=== PATIENT | female | born 1950 | race Caucasian/White ===

== ENCOUNTER 2023-07-07 17:19 | Inpatient (IN) | payer MEDICARE ==
[2023-07-07 18:05] LABS: Basophils % (A) 1 %; Eosinophils # (A) 0.1 k/uL (0-0.7); Eosinophils % (A) 2 %; HCT 44.4 % (34.0-46.0); HGB 14.1 gm/dL (11.4-16.0); Lymphocytes # (A) 0.9 k/uL (1.0-4.8); Lymphocytes % (A) 12 %; MCH 28.1 pg (25.0-35.0); MCHC 31.7 g/dL (31.0-37.0); MCV 88.8 fL (80.0-100.0); Mean Platelet Volume 9.2; Monocytes # (A) 0.3 k/uL (0-1.0); Monocytes % (A) 5 %; Neutrophils # (A) 5.8 k/uL (1.3-7.7); Neutrophils % (A) 80 %; Platelet Count 132 k/uL (150-450); RDW 13.5 % (11.5-15.5); WBC 7.3 k/uL (3.8-10.6)
[2023-07-07] MEDS: IPRATROPIUM-ALBUTEROL 3 ML NEB INHALATION STA (18:06)
[2023-07-07] MEDS: SODIUM CHLORIDE 0.9% 1,000 ML IV STA (18:11)
[2023-07-07 18:15] LABS: ALT 26 U/L (4-34); AST 27 U/L (14-36); African American GFR (CKD) >90 (>60 ml/min/1.73 sqM); Albumin 3.9 g/dL (3.5-5.0); Alkaline Phosphatase 99 U/L (38-126); Anion Gap 8 mmol/L; Blood Urea Nitrogen 16 mg/dL (7-17); Calcium 8.6 mg/dL (8.4-10.2); Carbon Dioxide 27 mmol/L (22-30); Chloride 105 mmol/L (98-107); Glucose 122 mg/dL (74-99); Magnesium 1.8 mg/dL (1.6-2.3); Non-African American GFR(CKD) 79 (>60 ml/min/1.73 sqM); Potassium 4.5 mmol/L (3.5-5.1); Sodium 140 mmol/L (137-145); Total Bilirubin 0.7 mg/dL (0.2-1.3)
--- NOTE | 2023-07-07 18:15 | ED ---
SOB HPI - General Chief Complaint: Shortness of Breath Stated Complaint: SOB, Chest Pain Time Seen by Provider: 07/07/23 17:30 Source: patient, RN notes reviewed, old records reviewed Mode of arrival: wheelchair Limitations: no limitations - History of Present Illness Initial Comments: This is a 73-year-old female to the ER for evaluation today. Patient presents today for evaluation regards to severe shortness of breath and exertional dyspnea. Patient has a long complex recent history of significant shortness of breath has no history of recent smoking quit smoking over 40 years ago. MD Complaint: shortness of breath, cough, anxiety -: days(s) Severity: severe Severity scale (1-10): 10 Consistency: constant Improves With: nothing Worsens With: exertion Known History Of: congestive heart failure Context: recent URI, recent illness Associated Symptoms: palpitations Treatments Prior to Arrival: none - Related Data Home Medications Medication Instructions Recorded Confirmed Sertraline HCl [Zoloft] 100 mg PO DAILY 11/17/13 07/07/23 Famotidine 40 mg PO DAILY PRN 07/07/23 07/07/23 Previous Rx's Medication Instructions Recorded Aspirin 81 mg PO DAILY tab 07/09/23 Atorvastatin [Lipitor] 80 mg PO HS #90 tab 07/09/23 Metoprolol Tartrate [Lopressor] 25 mg PO BID #180 tab 07/09/23 Nitroglycerin Sl Tabs [Nitrostat] 0.4 mg SUBLINGUAL Q5M PRN #25 tab 07/09/23 Spironolactone [Aldactone] 25 mg PO DAILY #90 tab 07/09/23 Ticagrelor [Brilinta] 90 mg PO BID #180 tab 07/09/23 lisinopriL [Zestril] 5 mg PO BID #180 tab 07/09/23 Allergies Allergy/AdvReac Type Severity Reaction Status Date / Time adhesive Allergy Rash/Hives Verified 07/07/23 19:11 Review of Systems ROS Statement: Those systems with pertinent positive or pertinent negative responses have been documented in the HPI. ROS Other: All systems not noted in ROS Statement are negative. Past Medical History Past Medical History: Pneumonia Additional Past Medical History / Comment(s): Seasonal allergy disorder. Occasional cardiac ectopy. Depression History of Any Multi-Drug Resistant Organisms: None Reported Past Surgical History: Bariatric Surgery, Section Additional Past Surgical History / Comment(s): lap band Past Anesthesia/Blood Transfusion Reactions: No Reported Reaction Past Psychological History: Anxiety, Depression Smoking Status: Former smoker Past Alcohol Use History: None Reported Past Drug Use History: None Reported - Past Family History Father Family Medical History: Cancer Additional Family Medical History / Comment(s): at age 79-cancer, heart problems Mother Additional Family Medical History / Comment(s): AT AGE 48-THROAT CANCER General Exam Limitations: no limitations General appearance: alert, in no apparent distress Head exam: Present: atraumatic, normocephalic, normal inspection Eye exam: Present: normal appearance, PERRL, EOMI. Absent: scleral icterus, conjunctival injection, periorbital swelling ENT exam: Present: normal exam, mucous membranes moist Neck exam: Present: normal inspection. Absent: tenderness, meningismus, lymphadenopathy Respiratory exam: Present: normal lung sounds bilaterally. Absent: respiratory distress, wheezes, rales, rhonchi, stridor Cardiovascular Exam: Present: regular rate, normal rhythm, normal heart sounds. Absent: systolic murmur, diastolic murmur, rubs, gallop, clicks GI/Abdominal exam: Present: soft, normal bowel sounds. Absent: distended, tenderness, guarding, rebound, rigid Extremities exam: Present: normal inspection, full ROM, normal capillary refill. Absent: tenderness, pedal edema, joint swelling, calf tenderness Back exam: Present: normal inspection Neurological exam: Present: alert, oriented X3, CN II-XII intact Psychiatric exam: Present: normal affect, normal mood Skin exam: Present: warm, dry, intact, normal color. Absent: rash Course Vital Signs 07/07/23 07/07/23 07/07/23 17:20 18:07 18:12 Temperature 98.3 F Pulse Rate 87 97 70 Respiratory 30 H 36 H Rate Blood Pressure 195/95 189/98 O2 Sat by Pulse 98 99 Oximetry 07/07/23 07/07/23 18:15 19:42 Temperature Pulse Rate 72 69 Respiratory 22 Rate Blood Pressure 180/82 O2 Sat by Pulse 99 Oximetry - Reevaluation(s) Reevaluation #1: 07/07/23 19:29 Medical record is reviewed Reevaluation #2: 07/07/23 19:29 Patient symptoms unchanged Reevaluation #3: 05/15/24 19:29 Patient informed of results and questions answered Reevaluation #4: Was pt. sent in by a medical professional or institution (, [facility], CUSTODIAL ENGINEER, urgent care, hospital, or custodial...) When possible be specific @ -no Did you speak to anyone other than the patient for history (EMS, parent, family, police, friend...)? What history was obtained from this source @ -no Did you review nursing and triage notes (agree or disagree)? Why? @ -agree Are old charts reviewed (outside hosp., previous admission, EMS record, old EKG, old radiological studies, urgent care reports/EKG's, custodial records)? Report findings @ -yes Differential Diagnosis (chest pain, altered mental status, abdominal pain women, abdominal pain men, vaginal bleeding, weakness, fever, dyspnea, syncope, headache, dizziness, GI bleed, back pain, seizure, CVA, palpatations, mental health, musculoskeletal)? @ -prior EKG interpreted by me (3pts min.). @ -yes X-rays interpreted by me (1pt min.). @ -yes positive for CHF CT interpreted by me (1pt min.). @ -no U/S interpreted by me (1pt. min.). @ -no What testing was considered but not performed or refused? (CT, X-rays, U/S, labs)? Why? @ -none What meds were considered but not given or refused? Why? @ -none Did you discuss the management of the patient with other professionals (professionals i.e. [facility]on[facility], CUSTODIAL ENGINEER, lab, RT, psych nurse, social sciences instructor, electro optics engineer, teacher, welfare officer, correctional counselor/case manager)? Give summary @ -no Was smoking cessation discussed for >3mins.? @ -no Was critical care preformed (if so, how long)? @ -yes31 Were there social determinants of health that impacted care today? How? (Homelessness, low income, unemployed, alcoholism, drug addiction, transportatio n, low edu. Level, literacy, decrease access to med. care, penitentiary, rehab)? @ -none Was there de-escalation of care discussed even if they declined (Discuss DNR or withdrawal of care, Hospice)? DNR status @ -no What co-morbidities impacted this encounter? (DM, HTN, Smoking, COPD, CAD, Cancer, CVA, ARF, Chemo, Hep., AIDS, mental health diagnosis, sleep apnea, morbid obesity)? @ -none Was patient admitted / discharged? Hospital course, mention meds given and route, prescriptions, significant lab abnormalities, going to OR and other pertinent info. @ - 73 female to the ER for evaluation of severe dyspnea and shortness of breath. Patient will be admitted for diuresis and cardiology evaluation Admitted Undiagnosed new problem with uncertain prognosis? @ -no Drug Therapy requiring intensive monitoring for toxicity (Heparin, Nitro, Insulin, Cardizem)? @ -no Were any procedures done? @ -no Diagnosis/symptom? @ -Severe dyspnea shortness of breath respiratory failure CHF Acute, or Chronic, or Acute on Chronic? @ -Acute Uncomplicated (without systemic symptoms) or Complicated (systemic symptoms)? @ -Complicated Side effects of treatment? @ -no Exacerbation, Progression, or Severe Exacerbation? @ -exacerbation Poses a threat to life or bodily function? How? (Chest pain, [place], [place], pneumonia, PE, COPD, DKA, ARF, appy, cholecystitis, CVA, Diverticulitis, Homicidal, Suicidal, threat to staff... and all critical care pts) @ -yes with extremes of age Reevaluation #5: Differential Dyspnea: Coronary syndrome, arrhythmia, tamponade, asthma, COPD, pulmonary embolism, pneumonia, pneumothorax, pulmonary effusion, anaphylaxis, diabetic ketoacidosis, flailed chest, pulmonary contusion, diaphragmatic rupture, anemia, neuromuscular, this is not meant to be an all-inclusive list. - Consultations Consultation #1: Spoke with Dr. Gunn who will admit this patient Medical Decision Making - Medical Decision Making 73 female to the ER for evaluation of severe dyspnea and shortness of breath. Patient will be admitted for diuresis and cardiology evaluation - Lab Data Result diagrams: 07/09/23 05:49 07/09/23 05:49 Lab Results 07/07/23 07/07/23 07/07/23 Range/Units 17:49 17:49 17:49 WBC 7.3 (3.8-10.6) k/uL RBC 5.00 (3.80-5.40) m/uL Hgb 14.1 (11.4-16.0) gm/dL Hct 44.4 (34.0-46.0) % MCV 88.8 (80.0-100.0) fL MCH 28.1 (25.0-35.0) pg MCHC 31.7 (31.0-37.0) g/dL RDW 13.5 (11.5-15.5) % Plt Count 132 L (150-450) k/uL MPV 9.2 Immature Gran % (Auto) % Absolute Nucleated RBC % Neutrophils % 80 % Lymphocytes % 12 % Monocytes % 5 % Eosinophils % 2 % Basophils % 1 % Immature Gran # (0.00-0.04) X 10*3/uL Neutrophils # 5.8 (1.3-7.7) k/uL Lymphocytes # 0.9 L (1.0-4.8) k/uL Monocytes # 0.3 (0-1.0) k/uL Eosinophils # 0.1 (0-0.7) k/uL Basophils # 0.0 (0-0.2) k/uL NRBC/100 WBC Diff (0.00-0.01) X 10*3/uL PT 11.0 (10.0-12.5) sec INR 1.0 (<1.2) APTT 24.5 (22.0-30.0) sec D-Dimer 1.08 H (<0.60) mg/L FEU Sodium 140 (137-145) mmol/L Potassium 4.5 (3.5-5.1) mmol/L Chloride 105 (98-107) mmol/L Carbon Dioxide 27 (22-30) mmol/L Anion Gap 8 mmol/L BUN 16 (7-17) mg/dL Creatinine 0.75 (0.52-1.04) mg/dL Est GFR (CKD-EPI)AfAm >90 (>60 ml/min/1.73 sqM) Est GFR (CKD-EPI)NonAf 79 (>60 ml/min/1.73 sqM) Glucose 122 H (74-99) mg/dL Calcium 8.6 (8.4-10.2) mg/dL Magnesium 1.8 (1.6-2.3) mg/dL Total Bilirubin 0.7 (0.2-1.3) mg/dL AST 27 (14-36) U/L ALT 26 (4-34) U/L Alkaline Phosphatase 99 (38-126) U/L Troponin I (0.000-0.034) ng/mL NT-Pro-B Natriuret Pep 1970 pg/mL Total Protein 7.0 (6.3-8.2) g/dL Albumin 3.9 (3.5-5.0) g/dL Globulin g/dL Albumin/Globulin Ratio Urine Color Urine Appearance (Clear) Urine pH (5.0-8.0) Ur Specific Beaver (1.001-1.035) Urine Protein (Negative) Urine Glucose (UA) (Negative) Urine Ketones (Negative) Urine Blood (Negative) Urine Nitrite (Negative) Urine Bilirubin (Negative) Urine Urobilinogen (<2.0) mg/dL Ur Leukocyte Esterase (Negative) 07/07/23 07/07/23 07/07/23 Range/Units 17:49 18:03 21:12 WBC (3.8-10.6) k/uL RBC (3.80-5.40) m/uL Hgb (11.4-16.0) gm/dL Hct (34.0-46.0) % MCV (80.0-100.0) fL MCH (25.0-35.0) pg MCHC (31.0-37.0) g/dL RDW (11.5-15.5) % Plt Count (150-450) k/uL MPV Immature Gran % (Auto) % Absolute Nucleated RBC % Neutrophils % % Lymphocytes % % Monocytes % % Eosinophils % % Basophils % % Immature Gran # (0.00-0.04) X 10*3/uL Neutrophils # (1.3-7.7) k/uL Lymphocytes # (1.0-4.8) k/uL Monocytes # (0-1.0) k/uL Eosinophils # (0-0.7) k/uL Basophils # (0-0.2) k/uL NRBC/100 WBC Diff (0.00-0.01) X 10*3/uL PT (10.0-12.5) sec INR (<1.2) APTT (22.0-30.0) sec D-Dimer (<0.60) mg/L FEU Sodium (137-145) mmol/L Potassium (3.5-5.1) mmol/L Chloride (98-107) mmol/L Carbon Dioxide (22-30) mmol/L Anion Gap mmol/L BUN (7-17) mg/dL Creatinine (0.52-1.04) mg/dL Est GFR (CKD-EPI)AfAm (>60 ml/min/1.73 sqM) Est GFR (CKD-EPI)NonAf (>60 ml/min/1.73 sqM) Glucose (74-99) mg/dL Calcium (8.4-10.2) mg/dL Magnesium (1.6-2.3) mg/dL Total Bilirubin (0.2-1.3) mg/dL AST (14-36) U/L ALT (4-34) U/L Alkaline Phosphatase (38-126) U/L Troponin I 0.022 0.173 H* (0.000-0.034) ng/mL NT-Pro-B Natriuret Pep pg/mL Total Protein (6.3-8.2) g/dL Albumin (3.5-5.0) g/dL Globulin g/dL Albumin/Globulin Ratio Urine Color Colorless Urine Appearance Clear (Clear) Urine pH 7.0 (5.0-8.0) Ur Specific Beaver 1.005 (1.001-1.035) Urine Protein Trace H (Negative) Urine Glucose (UA) Negative (Negative) Urine Ketones Negative (Negative) Urine Blood Negative (Negative) Urine Nitrite Negative (Negative) Urine Bilirubin Negative (Negative) Urine Urobilinogen <2.0 (<2.0) mg/dL Ur Leukocyte Esterase Negative (Negative) 07/08/23 07/08/23 07/08/23 Range/Units 00:22 00:22 00:22 WBC 8.8 (3.8-10.6) k/uL RBC 4.63 (3.80-5.40) m/uL Hgb 13.5 (11.4-16.0) gm/dL Hct 40.9 (34.0-46.0) % MCV 88.3 (80.0-100.0) fL MCH 29.0 (25.0-35.0) pg MCHC 32.9 (31.0-37.0) g/dL RDW 13.6 (11.5-15.5) % Plt Count 140 L (150-450) k/uL MPV 9.8 Immature Gran % (Auto) % Absolute Nucleated RBC % Neutrophils % 83 % Lymphocytes % 10 % Monocytes % 4 % Eosinophils % 1 % Basophils % 0 % Immature Gran # (0.00-0.04) X 10*3/uL Neutrophils # 7.3 (1.3-7.7) k/uL Lymphocytes # 0.9 L (1.0-4.8) k/uL Monocytes # 0.4 (0-1.0) k/uL Eosinophils # 0.1 (0-0.7) k/uL Basophils # 0.0 (0-0.2) k/uL NRBC/100 WBC Diff (0.00-0.01) X 10*3/uL PT 12.1 (10.0-12.5) sec INR 1.1 (<1.2) APTT 123.5 H* (22.0-30.0) sec D-Dimer (<0.60) mg/L FEU Sodium (137-145) mmol/L Potassium (3.5-5.1) mmol/L Chloride (98-107) mmol/L Carbon Dioxide (22-30) mmol/L Anion Gap mmol/L BUN (7-17) mg/dL Creatinine (0.52-1.04) mg/dL Est GFR (CKD-EPI)AfAm (>60 ml/min/1.73 sqM) Est GFR (CKD-EPI)NonAf (>60 ml/min/1.73 sqM) Glucose (74-99) mg/dL Calcium (8.4-10.2) mg/dL Magnesium (1.6-2.3) mg/dL Total Bilirubin (0.2-1.3) mg/dL AST (14-36) U/L ALT (4-34) U/L Alkaline Phosphatase (38-126) U/L Troponin I 0.197 H* (0.000-0.034) ng/mL NT-Pro-B Natriuret Pep pg/mL Total Protein (6.3-8.2) g/dL Albumin (3.5-5.0) g/dL Globulin g/dL Albumin/Globulin Ratio Urine Color Urine Appearance (Clear) Urine pH (5.0-8.0) Ur Specific Beaver (1.001-1.035) Urine Protein (Negative) Urine Glucose (UA) (Negative) Urine Ketones (Negative) Urine Blood (Negative) Urine Nitrite (Negative) Urine Bilirubin (Negative) Urine Urobilinogen (<2.0) mg/dL Ur Leukocyte Esterase (Negative) 07/08/23 07/08/23 07/08/23 Range/Units 06:25 06:25 06:25 WBC 6.51 (3.8-10.6) k/uL RBC 4.70 (3.80-5.40) m/uL Hgb 13.3 (11.4-16.0) gm/dL Hct 42.5 (34.0-46.0) % MCV 90.4 (80.0-100.0) fL MCH 28.3 (25.0-35.0) pg MCHC 31.3 L (31.0-37.0) g/dL RDW 13.3 (11.5-15.5) % Plt Count 138 L (150-450) k/uL MPV 11.9 Immature Gran % (Auto) 0.30 % Absolute Nucleated RBC 0 % Neutrophils % 73.9 % Lymphocytes % 17.1 % Monocytes % 6.9 % Eosinophils % 1.2 % Basophils % 0.6 % Immature Gran # 0.02 (0.00-0.04) X 10*3/uL Neutrophils # 4.81 (1.3-7.7) k/uL Lymphocytes # 1.11 (1.0-4.8) k/uL Monocytes # 0.45 (0-1.0) k/uL Eosinophils # 0.08 (0-0.7) k/uL Basophils # 0.04 (0-0.2) k/uL NRBC/100 WBC Diff 0 (0.00-0.01) X 10*3/uL PT 12.1 (10.0-12.5) sec INR 1.1 (<1.2) APTT 28.0 (22.0-30.0) sec D-Dimer (<0.60) mg/L FEU Sodium (137-145) mmol/L Potassium (3.5-5.1) mmol/L Chloride (98-107) mmol/L Carbon Dioxide (22-30) mmol/L Anion Gap mmol/L BUN (7-17) mg/dL Creatinine (0.52-1.04) mg/dL Est GFR (CKD-EPI)AfAm (>60 ml/min/1.73 sqM) Est GFR (CKD-EPI)NonAf (>60 ml/min/1.73 sqM) Glucose (74-99) mg/dL Calcium (8.4-10.2) mg/dL Magnesium (1.6-2.3) mg/dL Total Bilirubin (0.2-1.3) mg/dL AST (14-36) U/L ALT (4-34) U/L Alkaline Phosphatase (38-126) U/L Troponin I (0.000-0.034) ng/mL NT-Pro-B Natriuret Pep pg/mL Total Protein (6.3-8.2) g/dL Albumin (3.5-5.0) g/dL Globulin g/dL Albumin/Globulin Ratio Urine Color Urine Appearance (Clear) Urine pH (5.0-8.0) Ur Specific Be[place] (1.001-1.035) Urine Protein (Negative) Urine Glucose (UA) (Negative) Urine Ketones (Negative) Urine Blood (Negative) Urine Nitrite (Negative) Urine Bilirubin (Negative) Urine Urobilinogen (<2.0) mg/dL Ur Leukocyte Esterase (Negative) 07/09/23 07/09/23 Range/Units 05:49 05:49 WBC 7.13 (3.8-10.6) k/uL RBC 4.43 (3.80-5.40) m/uL Hgb 12.5 (11.4-16.0) gm/dL Hct 38.8 (34.0-46.0) % MCV 87.6 (80.0-100.0) fL MCH 28.2 (25.0-35.0) pg MCHC 32.2 (31.0-37.0) g/dL RDW 13.3 (11.5-15.5) % Plt Count 138 L (150-450) k/uL MPV 11.9 Immature Gran % (Auto) 0.30 % Absolute Nucleated RBC 0 % Neutrophils % 73.8 % Lymphocytes % 14.3 % Monocytes % 9.8 % Eosinophils % 1.4 % Basophils % 0.4 % Immature Gran # 0.02 (0.00-0.04) X 10*3/uL Neutrophils # 5.26 (1.3-7.7) k/uL Lymphocytes # 1.02 (1.0-4.8) k/uL Monocytes # 0.70 (0-1.0) k/uL Eosinophils # 0.10 (0-0.7) k/uL Basophils # 0.03 (0-0.2) k/uL NRBC/100 WBC Diff 0 (0.00-0.01) X 10*3/uL PT (10.0-12.5) sec INR (<1.2) APTT (22.0-30.0) sec D-Dimer (<0.60) mg/L FEU Sodium 137 (137-145) mmol/L Potassium 3.8 (3.5-5.1) mmol/L Chloride 104 (98-107) mmol/L Carbon Dioxide 30 (22-30) mmol/L Anion Gap 3 mmol/L BUN 22 H (7-17) mg/dL Creatinine 0.78 (0.52-1.04) mg/dL Est GFR (CKD-EPI)AfAm 88 (>60 ml/min/1.73 sqM) Est GFR (CKD-EPI)NonAf 76 (>60 ml/min/1.73 sqM) Glucose 121 H (74-99) mg/dL Calcium 8.3 L (8.4-10.2) mg/dL Magnesium (1.6-2.3) mg/dL Total Bilirubin 1.4 H (0.2-1.3) mg/dL AST 27 (14-36) U/L ALT 20 (4-34) U/L Alkaline Phosphatase 73 (38-126) U/L Troponin I (0.000-0.034) ng/mL NT-Pro-B Natriuret Pep pg/mL Total Protein 5.9 L (6.3-8.2) g/dL Albumin 3.1 L (3.5-5.0) g/dL Globulin 2.8 g/dL Albumin/Globulin Ratio 1.1 Urine Color Urine Appearance (Clear) Urine pH (5.0-8.0) Ur Specific Be[place] (1.001-1.035) Urine Protein (Negative) Urine Glucose (UA) (Negative) Urine Ketones (Negative) Urine Blood (Negative) Urine Nitrite (Negative) Urine Bilirubin (Negative) Urine Urobilinogen (<2.0) mg/dL Ur Leukocyte Esterase (Negative) - EKG Data -: EKG Interpreted by Me (EKG is sinus 82 OK 156 QRS 1 2 QTc 396) - Radiology Data Radiology results: report reviewed (Chest x-ray shows significant CHF), image reviewed Critical Care Time Critical Care Time: Yes Total Critical Care Time: 31 Disposition Clinical Impression: Congestive heart failure, Acute pulmonary edema, Hypoxia Disposition: ADMITTED IP TO THIS HOSP Condition: Serious Is patient prescribed a controlled substance at d/c from ED?: No Time of Disposition: 19:30
[2023-07-07 18:18] LABS: Partial Thromboplastin Time 24.5 sec (22.0-30.0)
[2023-07-07 18:18] LABS: Appearance,Urine Clear (Clear); Bilirubin,Urine Negative (Negative); Blood,Urine Negative (Negative); Color,Urine Colorless; Glucose,Urine (UA) Negative (Negative); Ketones,Urine Negative (Negative); Leukocyte Esterase,Urine Negative (Negative); Nitrite,Urine Negative (Negative); Protein,Urine Trace (Negative); Specific Gravity,Urine 1.005 (1.001-1.035); Urobilinogen,Urine <2.0 mg/dL (<2.0)
[2023-07-07 18:23] LABS: NT-Pro-B-Type Natriuretic Pept 1970 pg/mL
--- NOTE | 2023-07-07 18:56 | XR ---
EXAMINATION TYPE: XR chest 1V portable DATE OF EXAM: 07/07/2023 6:24 PM CLINICAL INDICATION:Female, 73 years old with history of sob; [facility] COMPARISON: None TECHNIQUE: XR chest 1V portable Frontal view of the chest. FINDINGS: Lungs/Pleura: There is no evidence of pleural effusion, focal consolidation, or pneumothorax. Pulmonary vascularity: Pulmonary vascular congestion. Heart/mediastinum: Cardiomediastinal silhouette is enlarged and stable. Musculoskeletal: No acute osseous pathology. IMPRESSION: Cardiomegaly and mild pulmonary vascular congestion. Correlate with BNP for congestive heart failure.
[2023-07-07] MEDS ORDERED: ONDANSETRON 4 MG/2 ML VIAL IVP PRN (19:19)
[2023-07-07] MEDS ORDERED: IPRATROPIUM-ALBUTEROL 3 ML NEB INHALATION PRN (19:19)
[2023-07-07] MEDS ORDERED: NALOXONE 0.4 MG/ML 1 ML VIAL IV PRN (19:19)
[2023-07-07] MEDS ORDERED: FAMOTIDINE 20 MG TAB PO PRN (20:04)
[2023-07-07] MEDS: FUROSEMIDE 10 MG/ML 4 ML VIAL IV SCH (20:05)
[2023-07-07] MEDS: NITROGLYCERIN OINT 1 INCH/GM PACKET TOPICAL SCH (23:13)
[2023-07-07] MEDS: HEPARIN SOD,PORK IN 0.45% NACL 25,000 UNIT in 0.45% NACL 1 250ML.BAG IV SCH (23:33)
[2023-07-07] MEDS: HEPARIN SODIUM 1,000 UN/ML (10ML VL) IV ONE (23:37)
[2023-07-08 01:06] LABS: Basophils % (A) 0 %; Eosinophils # (A) 0.1 k/uL (0-0.7); Eosinophils % (A) 1 %; HCT 40.9 % (34.0-46.0); HGB 13.5 gm/dL (11.4-16.0); Lymphocytes # (A) 0.9 k/uL (1.0-4.8); Lymphocytes % (A) 10 %; MCHC 32.9 g/dL (31.0-37.0); MCV 88.3 fL (80.0-100.0); Mean Platelet Volume 9.8; Monocytes # (A) 0.4 k/uL (0-1.0); Monocytes % (A) 4 %; Neutrophils # (A) 7.3 k/uL (1.3-7.7); Neutrophils % (A) 83 %; Platelet Count 140 k/uL (150-450); RBC 4.63 m/uL (3.80-5.40); RDW 13.6 % (11.5-15.5); WBC 8.8 k/uL (3.8-10.6)
[2023-07-08 01:13] LABS: INR 1.1 (<1.2); Prothrombin Time 12.1 sec (10.0-12.5)
[2023-07-08 01:31] LABS: Partial Thromboplastin Time 123.5 sec (22.0-30.0)
[2023-07-08] MEDS: HEPARIN SODIUM 1,000 UN/ML (10ML VL) IV PRN (07:45)
[2023-07-08] MEDS ORDERED: ALPRAZolam 0.25 MG TAB PO PRN (08:31)
[2023-07-08] MEDS ORDERED: NITROGLYCERIN SL TABS 0.4 MG TAB SUBLINGUAL PRN ×2 (08:31→13:07)
[2023-07-08] MEDS ORDERED: ALPRAZolam 0.5 MG TAB PO PRN (08:31)
[2023-07-08 08:44] LABS: HCT 42.5 % (37.2-46.3); HGB 13.3 g/dL (12.0-15.0); MCH 28.3 pg (27.0-32.0); MCHC 31.3 g/dL (32.0-37.0); MCV 90.4 FL (80.0-97.0); Mean Platelet Volume 11.9 FL (9.5-12.2); NRBC Per 100 WBC 0 X 10*3/uL (0.00-0.01); Platelet Count 138 X 10*3/uL (140-440); RDW 13.3 % (11.5-14.5); WBC 6.51 X 10*3/uL (4.50-10.00)
[2023-07-08 08:45] LABS: Basophils # (A) 0.04 X 10*3/uL (0.00-0.10); Basophils % (A) 0.6 %; Eosinophils # (A) 0.08 X 10*3/uL (0.04-0.35); Eosinophils % (A) 1.2 %; Lymphocytes # (A) 1.11 X 10*3/uL (0.90-5.00); Lymphocytes % (A) 17.1 %; Monocytes # (A) 0.45 X 10*3/uL (0.20-1.00); Monocytes % (A) 6.9 %; Neutrophils # (A) 4.81 X 10*3/uL (1.80-7.70); Neutrophils % (A) 73.9 %
[2023-07-08 08:46] LABS: INR 1.1 (<1.2); Prothrombin Time 12.1 sec (10.0-12.5)
[2023-07-08] MEDS: ATORVASTATIN 80 MG TAB PO STA (08:47)
[2023-07-08] MEDS: ASPIRIN 325 MG TAB PO STA (08:47)
[2023-07-08] MEDS: SERTRALINE 100 MG TAB PO SCH (08:49)
--- NOTE | 2023-07-08 10:18 | CA ---
Transthoracic Echo Report Name: Nina Miller Age: 73 Gender: F : 1950 Exam Date: 07/08/2023 08:43 Exam Location: [facility] Ht (in): 61 Wt (lb): 238 Ordering Physician: Dilshad Agarwal DO Attending/Referring Phys: [id number], Any Carriage Operator Nuria Aguillon RDCS Procedure CPT: Indications: Heart failure Cardiac Hx: Technical Quality: Fair Contrast 1: Definity Total Dose (mL): 2 Contrast 2: Total Dose (mL): MEASUREMENTS (Male / Female) Normal Values 2D ECHO LV Diastolic Diameter PLAX 5.4 cm 4.2 - 5.9 / 3.9 - 5.3 cm LV Systolic Diameter PLAX 4.3 cm IVS Diastolic Thickness 1.8 cm 0.6 - 1.0 / 0.6 - 0.9 cm LVPW Diastolic Thickness 1.2 cm 0.6 - 1.0 / 0.6 - 0.9 cm LV Relative Wall Thickness 0.6 RV Internal Dim ED PLAX 2.8 cm LV Diastolic Volume MOD BP 92.3 cm??? 67 - 155 / 56 - 104 cm??? LV Systolic Volume MOD BP 65.0 cm??? 22 - 58 / 19 - 49 cm??? LV Ejection Fraction MOD BP 29.5 % >= 55 % LV Cardiac Index MOD BP 883.6 cm???/min???m??? LV Diastolic Volume MOD 4C 102.8 cm??? LV Systolic Volume MOD 4C 60.7 cm??? LV Ejection Fraction MOD 4C 41.0 % LV Cardiac Index MOD 4C 1365.7 cm???/min???m??? LV Diastolic Length 4C 7.1 cm LV Systolic Length 4C 6.3 cm LV Diastolic Volume MOD 2C 82.2 cm??? LV Systolic Volume MOD 2C 66.5 cm??? LV Ejection Fraction MOD 2C 19.1 % LV Cardiac Index MOD 2C 508.1 cm???/min???m??? LV Diastolic Length 2C 7.0 cm LV Systolic Length 2C 6.7 cm LA Volume 90.9 cm??? 18 - 58 / 22 - 52 cm??? LA Volume Index 40.9 cm???/m??? 16 - 28 cm???/m??? M-MODE Aortic Root Diameter MM 2.8 cm LA Systolic Diameter MM 4.8 cm LA Ao Ratio MM 1.7 AV Cusp Separation MM 1.6 cm DOPPLER AV Peak Velocity 186.5 cm/s AV Peak Gradient 13.9 mmHg AV Mean Velocity 124.1 cm/s AV Mean Gradient 7.0 mmHg AV Velocity Time Integral 40.2 cm LVOT Peak Velocity 90.9 cm/s LVOT Peak Gradient 3.3 mmHg LVOT Velocity Time Integral 20.9 cm MV Area PHT 2.1 cm??? Mitral E Point Velocity 80.6 cm/s Mitral A Point Velocity 94.6 cm/s Mitral E to A Ratio 0.9 MV Deceleration Time 360.0 ms MV E' Velocity 3.6 cm/s Mitral E to MV E' Ratio 22.5 TR Peak Velocity 152.6 cm/s TR Peak Gradient 9.3 mmHg Right Ventricular Systolic Press 14.3 mmHg FINDINGS Left Ventricle Moderately increased left ventricular wall thickness. Moderately increased left ventricular systolic volume. Left ventricular ejection fraction is estimated at 35-40 %. Mid anterior, anterior apical and anteroseptal severe hypokinesis.grade 2 diastolic dysfunction. Right Ventricle Normal right ventricular size and function. Right ventricular systolic pressure within normal limits. Right Atrium Normal right atrial size. Left Atrium Severely increased left atrial volume. Mitral Valve Structurally normal mitral valve. Mitral valve thickened. Mild mitral annular calcification. Moderate mitral regurgitation. Aortic Valve Trileaflet aortic valve. No aortic valve stenosis or regurgitation. Tricuspid Valve Structurally normal tricuspid valve. Mild tricuspid regurgitation. Pulmonic Valve Structurally normal pulmonic valve. Pericardium No pericardial effusion. Aorta Normal size aortic root and proximal ascending aorta. CONCLUSIONS 1. Moderate to severe impairment in the left ventricle systolic function with segmental wall motion abnormality 2. Moderate mitral with mild tricuspid regurgitation Previewed by: Dr. Tristin Jasso MD (Electronically Signed) Final Date: 08 Jul 2023 10:17
[2023-07-08] MEDS ORDERED: fentaNYL (PF) 50 MCG/ML 2 ML AMP ONE (11:45)
[2023-07-08] MEDS ORDERED: HEPARIN SODIUM 1,000 UN/ML (10ML VL) ONE (11:45)
[2023-07-08] MEDS ORDERED: VERAPAMIL 2.5 MG/ML 2 ML AMP ONE (11:45)
[2023-07-08] MEDS: IV FLUID CONTINUATION 1,000 ML IV ONE (11:54)
[2023-07-08] MEDS: fentaNYL (PF) 50 MCG/ML 2 ML AMP IVP ONE (11:54)
[2023-07-08] MEDS: LIDOCAINE 1% INJ 10MG/ML (20 ML MDV) SQ ONE (11:54)
[2023-07-08] MEDS: VERAPAMIL SYRINGE (5 MG/10 ML) INTRAARTER ONE (12:16)
[2023-07-08] MEDS: HEPARIN SODIUM 1,000 UN/ML (10ML VL) IV ONE (12:18)
[2023-07-08] MEDS: MIDAZOLAM 2 MG/2 ML VIAL IVP ONE (12:19)
[2023-07-08] MEDS ORDERED: TICAGRELOR 90 MG TAB ONE (12:23)
[2023-07-08] MEDS: TICAGRELOR 90 MG TAB PO ONE (12:25)
--- NOTE | 2023-07-08 12:42 | P.CRDCN ---
History of Present Illness Consult date: 07/08/23 Consult reason: chest pain History of present illness: History of present illness: This is a 73-year-old female with past medical history of gastroesophageal reflux disease, morbid obesity status post lap band. Patient complains of sudden onset of shortness of breath as well as heaviness in her chest when she is walking to the bathroom. Symptoms started last Wednesday but patient thought it was related to lap band as she states the lap band had moved and was causing some symptoms for her on and off. She did have this chest pain on and off through the past week. She did use updraft treatment with some improvement. Yesterday she states she could barely breathe and she did have chest pain and it was worse with activity. She denies having any palpitations. She had a little lightheadedness. She states for the last couple of days she has been feeling tired and slept a lot. No cough or sputum production and no fever or chills. No nausea or vomiting. No blood in her stools or urine. No history of stroke or seizure. She states she has had a little lower extremity edema but none present now. She had cold symptoms back in March but none now. Patient apparently had a cardiac catheterization in 1977 which was normal. She has seen Dr. Cummins greater than 10 years ago. She has not been taking any cardiac medications. Patient was started on a heparin drip. Patient has been started on a heparin drip and Lasix IV 40 mg every 8 hours. Discussed option of cardiac catheterization and patient is agreeable to move forward with this. EKG no acute ST changes. Chest x-ray: Cardiomegaly with mild pulmonary vascular congestion. Echocardiogram performed on 07/07/2023 reveals moderate to severe impairment in the left ventricular systolic function with segmental wall motion abnormality, EF 35 to 40%, moderate mitral and mild tricuspid regurgitation. WBC 6.5, hemoglobin 13.3. Troponin 0.02-0.173, 0.197. Creatinine 0.75. proBNP 1970. Urinalysis negative for infection. Home cardiac medications: None Review Of Systems: At the time of my exam: CONSTITUTIONAL: Denies fever or chills. HEENT: Denies blurred vision, vision changes, or eye pain. Denies hemoptysis CARDIOVASCULAR: Denies chest pain. Denies orthopnea. Denies PND. Denies palpitations RESPIRATORY: Denies shortness of breath. GASTROINTESTINAL: Denies abdominal pain. Denies nausea or vomiting. HEMATOLOGIC: Denies bleeding disorders. GENITOURINARY: Denies any blood in urine. SKIN: Denies pruitis. Denies rash. Physical examination: Gen: This is a morbidly obese 73-year-old female in no acute distress VS: reviewed, blood pressure 148/92, heart rate 61, pulse ox 99% on 2 L nasal cannula. HEENT: Head is atraumatic, normocephalic. Pupils equal, round. Sclerae is anicteric. NECK: Supple. No JVD. LUNGS: Clear to auscultation. No wheezes or rhonchi. No intercostal retractions. HEART: Regular rate and rhythm. Soft systolic murmur. ABDOMEN: Soft No tenderness. EXTREMITIES: No pedal edema. No calf tenderness. NEUROLOGICAL: Patient is awake, alert and oriented x3. Assessment: Non-ST elevated myocardial infarction Cardiomyopathy Gastroesophageal reflux disease Morbid obesity status post lap band Plan: Discontinue IV Lasix Schedule patient for cardiac catheterization today with Dr. Jasso Continue heparin drip Start patient on aspirin, atorvastatin, Further recommendations to follow based upon clinical course Thank you kindly for this consultation. Nurse practitioner note has been reviewed, I agree with documented findings and plan of care. Patient was seen and examined. Past Medical History Past Medical History: Heart Failure, Pneumonia Additional Past Medical History / Comment(s): Seasonal allergy disorder. Occasional cardiac ectopy. Depression History of Any Multi-Drug Resistant Organisms: MRSA Date of last positivie culture/infection: 2014 MDRO Source:: abdomen Past Surgical History: Bariatric Surgery, Section, Heart Catheterization Additional Past Surgical History / Comment(s): lap band, heart cath 1977 Past Anesthesia/Blood Transfusion Reactions: No Reported Reaction Past Psychological History: Anxiety, Depression Smoking Status: Former smoker Past Alcohol Use History: None Reported Additional Past Alcohol Use History / Comment(s): started smoking at age14- worked up to 3 ppd, quit 1979 Past Drug Use History: None Reported - Past Family History Father Family Medical History: Cancer Additional Family Medical History / Comment(s): at age 79-cancer, heart problems Mother Additional Family Medical History / Comment(s): AT AGE 48-THROAT CANCER Medications and Allergies Home Medications Medication Instructions Recorded Confirmed Type Sertraline HCl [Zoloft] 100 mg PO DAILY 11/17/13 07/07/23 History Famotidine 40 mg PO DAILY PRN 07/07/23 07/07/23 History Allergies Allergy/AdvReac Type Severity Reaction Status Date / Time adhesive Allergy Rash/Hives Verified 07/07/23 19:11 Physical Exam Vitals: Vital Signs Temp Pulse Pulse Resp BP BP Pulse Ox 07/08/23 07:00 98.6 F 61 16 148/92 99 07/08/23 03:19 98.8 F 68 18 166/68 99 07/07/23 22:06 66 20 156/67 99 07/07/23 20:49 98.9 F 77 18 195/84 99 07/07/23 19:42 69 22 180/82 99 07/07/23 18:15 72 07/07/23 18:12 70 36 H 189/98 99 07/07/23 18:07 97 07/07/23 17:20 98.3 F 87 30 H 195/95 98 Intake and Output 07/07/23 07/08/23 07/08/23 22:59 06:59 14:59 Intake Total 22 32.002 Output Total 1700 300 Balance -1678 -267.998 Intake: Intake, IV Titration 22 32.002 Amount Heparin Sod,Pork in 0.45% 22 32.002 NaCl 25,000 unit In 0.45 % NaCl 1 250ml.bag @ 9. 2631 UNITS/KG/HR 10 mls/ hr IV .Q24H [facility] Rx#: [id number] Output: Urine 1700 300 Other: # Voids 6 Weight 107.955 kg 106.1 kg Results 07/08/23 06:25 07/07/23 17:49 Cardiac Enzymes 07/07/23 07/07/23 07/07/23 Range/Units 17:49 17:49 21:12 AST 27 (14-36) U/L Troponin I 0.022 0.173 H* (0.000-0.034) ng/mL 07/08/23 Range/Units 00:22 AST (14-36) U/L Troponin I 0.197 H* (0.000-0.034) ng/mL Coagulation 07/07/23 07/08/23 07/08/23 Range/Units 17:49 00:22 06:25 PT 11.0 12.1 (10.0-12.5) sec APTT 24.5 123.5 H* 28.0 (22.0-30.0) sec CBC 07/07/23 07/08/23 Range/Units 17:49 00:22 WBC 7.3 8.8 (3.8-10.6) k/uL RBC 5.00 4.63 (3.80-5.40) m/uL Hgb 14.1 13.5 (11.4-16.0) gm/dL Hct 44.4 40.9 (34.0-46.0) % Plt Count 132 L 140 L (150-450) k/uL Comprehensive Metabolic Panel 07/07/23 Range/Units 17:49 Sodium 140 (137-145) mmol/L Potassium 4.5 (3.5-5.1) mmol/L Chloride 105 (98-107) mmol/L Carbon Dioxide 27 (22-30) mmol/L BUN 16 (7-17) mg/dL Creatinine 0.75 (0.52-1.04) mg/dL Glucose 122 H (74-99) mg/dL Calcium 8.6 (8.4-10.2) mg/dL AST 27 (14-36) U/L ALT 26 (4-34) U/L Alkaline Phosphatase 99 (38-126) U/L Total Protein 7.0 (6.3-8.2) g/dL Albumin 3.9 (3.5-5.0) g/dL Current Medications Generic Name Dose Route Start Last Admin Trade Name Freq PRN Reason Stop Dose Admin Albuterol/Ipratropium 3 ml 07/07/23 19:19 Ipratropium-Albuterol 3 Ml Neb INHALATION RT-QID PRN Shortness Of Breath Or Wheezing Famotidine 40 mg 07/07/23 20:04 Famotidine 20 Mg Tab PO DAILY PRN Heartburn Furosemide 40 mg 07/07/23 20:00 07/08/23 05:23 Furosemide 10 Mg/Ml 4 Ml Vial IV 40 mg Q8H [facility] Administration Heparin Sodium (Porcine) 0 unit 07/07/23 22:36 07/08/23 07:45 Heparin Sodium 1,000 Un/Ml (10ml Vl) IV 4,000 unit PER PROTOCOL PRN Administration Low PTT Protocol Heparin Sodium/Sodium Chloride 250 mls @ 10 mls/hr 05/15/24 22:45 07/08/23 07:43 25,000 unit/ Sodium Chloride IV 9.263 units/kg/hr .Q24H [facility] 10 mls/hr Titration Protocol 9.2631 UNITS/KG/HR Naloxone HCl 0.2 mg 07/07/23 19:19 Naloxone 0.4 Mg/Ml 1 Ml Vial IV Q2M PRN Opioid Reversal Nitroglycerin 1 inch 07/07/23 22:45 07/07/23 23:13 Nitroglycerin Oint 1 Inch/Gm Packet TOPICAL 1 inch QID [facility] Administration Ondansetron HCl 4 mg 07/07/23 19:19 Ondansetron 4 Mg/2 Ml Vial IVP Q8HR PRN Nausea And Vomiting Sertraline HCl 100 mg 07/08/23 09:00 Sertraline 100 Mg Tab PO DAILY [facility] Intake and Output 07/07/23 07/08/23 07/08/23 22:59 06:59 14:59 Intake Total 22 32.002 Output Total 1700 300 Balance -1678 -267.998 Intake: Intake, IV Titration 22 32.002 Amount Heparin Sod,Pork in 0.45% 22 32.002 NaCl 25,000 unit In 0.45 % NaCl 1 250ml.bag @ 9. 2631 UNITS/KG/HR 10 mls/ hr IV .Q24H [facility] Rx#: [id number] Output: Urine 1700 300 Other: # Voids 6 Weight 107.955 kg 106.1 kg 07/08/23 00:22 07/07/23 17:49
[2023-07-08] MEDS: IOPAMIDOL-370 100ML BTL INJ ONE (12:56)
[2023-07-08] MEDS ORDERED: RX INFO: IV CONTRAST WAS GIVEN 1 EACH MISC MISCELLANE PRN (13:07)
[2023-07-08] MEDS ORDERED: ZOLPIDEM 5 MG TAB PO PRN (13:07)
[2023-07-08] MEDS ORDERED: ATROPINE SULFATE 0.1 MG/ML 10ML SYRINGE IV PRN (13:07)
[2023-07-08] MEDS ORDERED: MAG HYDROX/AL HYDROX/SIMETH 30 ML CUP PO PRN (13:07)
--- NOTE | 2023-07-08 13:16 | P.CARDCATH ---
Date of Procedure: 07/08/23 Description of Procedure: Cardiac Catheterization: The patient is a 73-year-old female with no prior history of CAD who presented with symptoms of progressive dyspnea, chest discomfort and evidence of CHF and non-STEMI. Recommendations were made regarding cardiac catheterization, the risks and the complications were discussed with the patient who is in full understanding and agreement. Procedure Description: Patient was brought to labor conciliator in fasting semi-sedated state after receiving Fentanyl and Benadryl achieiving moderate conscious sedated state. Using Xylocaine Anesthesia and modified Seldinger technique, a 6-Yemeni sheath was introduced in the left radial artery . Attempt to advance a wire in the right radial artery were unsuccessful. Subsequently, selective coronary angiography was performed using a 5-Yemeni 4 bend Claudia catheter. Multiple views of the coronary artery including hemiaxial views were obtained. The 5 Yemeni pigtail catheter was used to cross the aortic valve and LVEDP was calculated. PCI: After removing the catheter a 6 Yemeni CLS 3.5 guiding catheter was introduced into the system and after cannulating the left main 0.014 BMW J-wire was positioned distally in the LAD. Subsequently a Panaya eye IVUS catheter was introduced and imaging were obtained and showed the distal segment of 3.5 mm in diameter. It showed a noncalcified lesion. Subsequently a 3.5 x 33 mm Xience lina point stent was advanced and deployed at 16 briseida. After removing the balloon repeat IVUS imaging was performed and subsequently a 4.0 x 15 mm NC trek balloon was advanced and inflation in the distal segment of the stent at 10 briseida were done. And after removing the balloon a 4.5 x 12 mm NC trek balloon was advanced and 1 inflation in the proximal segment at 10 briseida was done. Following that the wire was removed and images were obtained and revealed stable successful stenting. Following that, catheter and sheath were removed. Hemostasis was obtained with deployment of vascular band . There was no immediate complication. Patient was returned to room in stable condition. Of note, the patient received a total of 7000 units of intravenous heparin as well as intra-arterial verapamil. She received an oral loading dose of ticagrelor. She had chest discomfort and EKG changes with the inflations that resolved at the end of the procedure. There was no immediate complication. Findings: Left main: This is a large size vessel, bifurcating into LAD and left circumflex, left main has no obstructive disease LAD: This is a large size vessel, reaching to the apex, giving rise to a large diagonal branch proximally. The proximal LAD at the takeoff of the diagonal branch has a 60 to 70% stenosis there is another 95% hazy plaque at the takeoff of the first septal sand slinger. The rest of the vessel has no high-grade stenosis. Left circumflex: This is a small nondominant vessel giving rise to 2 obtuse marginal branch, the left circumflex and its branches have no obstructive disease. RCA: This is a large dominant vessel, bifurcating distally to PDA and PLV. The mid right coronary artery has a 30 to 40% plaque without any high-grade stenosis Left Ventriculogram: Not performed Hemodynamics: There was no gradient across the aortic valve, LVEDP was 12-16 mmHg Conclusion: 1. Severe stenosis in the proximal LAD 2. Mild disease in the mid RCA 3. Right dominance 4. Successful stenting of the proximal LAD with reduction of stenosis from 95% to less than 5% with adjunctive IVUS imaging. JOYCE-3 flow was noted. The takeoff of the diagonal branch had a 50 to 60% plaque with JOYCE-3 flow. Recommendations: The patient will continue on aspirin and Brilinta without any interruption for 1 year in addition to aggressive coronary risks modification, maintaining LDL below 70 mg/dL. The findings and the recommendations were discussed with the patient and the family and they were in full understanding and agreement. Duration of sedation is 61 minutes.
[2023-07-08] MEDS: METOPROLOL TARTRATE 25 MG TAB PO SCH (14:21)
[2023-07-08 15:06] VITALS: BMI 44.1
--- NOTE | 2023-07-08 18:31 | P.HPIM ---
History of Present Illness H&P Date: 07/08/23 Nina Miller, is a 73-year-old female who presented to [facility] emergency room with a chief complaint of sudden onset of severe shortness of breath and chest heaviness He was evaluated in the emergency room vital examination on presentation revealed a temperature of 98.3 pulse 87 respiration 30 blood pressure 195/95 pulse ox 98% on room air Laboratory data revealed a white blood count of 7.3 hemoglobin 14.1 platelet count 132 d-dimer 1.08 troponin 0.022 BNP 1970 Testing in the emergency room revealed EKG revealed sinus rhythm with nonspecific T-wave abnormalities, chest x-ray revealed cardiomegaly with mild pulmonary vascular congestion Patient was admitted to medical floor for further evaluation and treatment Past Medical History Past Medical History: Heart Failure, Pneumonia Additional Past Medical History / Comment(s): Seasonal allergy disorder. Occasional cardiac ectopy. Depression History of Any Multi-Drug Resistant Organisms: MRSA Date of last positivie culture/infection: 2014 MDRO Source:: abdomen Past Surgical History: Bariatric Surgery, Section, Heart Catheterization Additional Past Surgical History / Comment(s): lap band, heart cath 1977 Past Anesthesia/Blood Transfusion Reactions: No Reported Reaction Past Psychological History: Anxiety, Depression Smoking Status: Former smoker Past Alcohol Use History: None Reported Additional Past Alcohol Use History / Comment(s): started smoking at age14- worked up to 3 ppd, quit 1979 Past Drug Use History: None Reported - Past Family History Father Family Medical History: Cancer Additional Family Medical History / Comment(s): at age 79-cancer, heart problems Mother Additional Family Medical History / Comment(s): AT AGE 48-THROAT CANCER Medications and Allergies Home Medications Medication Instructions Recorded Confirmed Type Sertraline HCl [Zoloft] 100 mg PO DAILY 11/17/13 07/07/23 History Famotidine 40 mg PO DAILY PRN 07/07/23 07/07/23 History Allergies Allergy/AdvReac Type Severity Reaction Status Date / Time adhesive Allergy Rash/Hives Verified 07/07/23 19:11 Physical Exam Vitals: Vital Signs Temp Pulse Pulse Resp BP BP Pulse Ox 07/08/23 07:00 98.6 F 61 16 148/92 99 07/08/23 03:19 98.8 F 68 18 166/68 99 07/07/23 22:06 66 20 156/67 99 07/07/23 20:49 98.9 F 77 18 195/84 99 07/07/23 19:42 69 22 180/82 99 07/07/23 18:15 72 07/07/23 18:12 70 36 H 189/98 99 07/07/23 18:07 97 07/07/23 17:20 98.3 F 87 30 H 195/95 98 Intake and Output 07/07/23 07/08/23 07/08/23 22:59 06:59 14:59 Intake Total 22 32.002 Output Total 1700 300 Balance -1678 -267.998 Intake: Intake, IV Titration 22 32.002 Amount Heparin Sod,Pork in 0.45% 22 32.002 NaCl 25,000 unit In 0.45 % NaCl 1 250ml.bag @ 9. 2631 UNITS/KG/HR 10 mls/ hr IV .Q24H [facility] Rx#: [id number] Output: Urine 1700 300 Other: # Voids 6 Weight 107.955 kg 106.1 kg In general patient is alert and oriented x 3 in no distress HEENT head normocephalic and atraumatic Neck is supple no JVD no goiter no lymphadenopathy no carotid bruit Chest examination reveals a scattered crackles in both bases no wheezing Cardiac exam reveals regular heart sounds S1 and S2 no gallops no murmurs Abdomen is soft nontender no organomegaly with normal bowel sounds Extremity exam reveals no edema no cyanosis or clubbing Neurological examination reveals no gross focal deficits Results CBC & Chem 7: 07/08/23 06:25 07/07/23 17:49 Labs: Abnormal Lab Results - Last 24 Hours (Table) 07/07/23 07/07/23 07/07/23 Range/Units 17:49 17:49 17:49 MCHC (32.0-37.0) g/dL Plt Count 132 L (150-450) k/uL Lymphocytes # 0.9 L (1.0-4.8) k/uL APTT (22.0-30.0) sec D-Dimer 1.08 H (<0.60) mg/L FEU Glucose 122 H (74-99) mg/dL Troponin I (0.000-0.034) ng/mL Urine Protein (Negative) 07/07/23 07/07/2307/07/24 Range/Units 18:03 21:12 00:22 MCHC (32.0-37.0) g/dL Plt Count (150-450) k/uL Lymphocytes # (1.0-4.8) k/uL APTT (22.0-30.0) sec D-Dimer (<0.60) mg/L FEU Glucose (74-99) mg/dL Troponin I 0.173 H* 0.197 H* (0.000-0.034) ng/mL Urine Protein Trace H (Negative) 07/08/23 07/08/23 07/08/23 Range/Units 00:22 00:22 06:25 MCHC 31.3 L (32.0-37.0) g/dL Plt Count 140 L 138 L (150-450) k/uL Lymphocytes # 0.9 L (1.0-4.8) k/uL APTT 123.5 H* (22.0-30.0) sec D-Dimer (<0.60) mg/L FEU Glucose (74-99) mg/dL Troponin I (0.000-0.034) ng/mL Urine Protein (Negative) Thrombosis Risk Factor Assmnt - Choose All That Apply Any of the Below Risk Factors Present?: Yes Each Factor Represents 1 point: Obesity (BMI >25) Other Risk Factors: Yes Each Risk Factor Represents 2 Points: Age 61-74 years Other congenital or acquired thrombophilia - If yes, enter type in comment: No Thrombosis Risk Factor Assessment Total Risk Factor Score: 3 Thrombosis Risk Factor Assessment Level: Moderate Risk Assessment and Plan Plan: acute exacerbation of congestive heart failure Hypertensive emergency on presentation Mild elevation in troponin level patient started on IV heparin, cardiology consultation requested, possible non-ST elevation myocardial infarction Underlying history of morbid obesity was previous history of lap band surgery Underlying history of gastroesophageal reflux disease Previous history of smoking Underlying history of depression with anxiety disorder At this time patient is admitted to telemetry floor With check serial EKG and cardiac enzymes Start IV heparin Home medications reviewed and reordered Cardiology consultation requested
[2023-07-08] MEDS: ATORVASTATIN 80 MG TAB PO SCH (20:04)
[2023-07-08] MEDS: TICAGRELOR 90 MG TAB PO SCH (20:04)
[2023-07-08] MEDS ORDERED: ATORVASTATIN 40 MG TAB PO SCH (21:00)
[2023-07-08] MEDS ORDERED: NITROGLYCERIN OINT 1 INCH/GM PACKET TOPICAL SCH (22:00)
[2023-07-08] MEDS: SODIUM CHLORIDE 0.9% 1,000 ML in EMPTY BAG 1 BAG IV SCH (22:13)
[2023-07-09 06:50] LABS: ALT 20 U/L (4-34); AST 27 U/L (14-36); African American GFR (CKD) 88 (>60 ml/min/1.73 sqM); Albumin 3.1 g/dL (3.5-5.0); Albumin/Globulin Ratio 1.1; Alkaline Phosphatase 73 U/L (38-126); Anion Gap 3 mmol/L; Blood Urea Nitrogen 22 mg/dL (7-17); Calcium 8.3 mg/dL (8.4-10.2); Carbon Dioxide 30 mmol/L (22-30); Chloride 104 mmol/L (98-107); Globulin 2.8 g/dL; Glucose 121 mg/dL (74-99); Non-African American GFR(CKD) 76 (>60 ml/min/1.73 sqM); Potassium 3.8 mmol/L (3.5-5.1); Sodium 137 mmol/L (137-145); Total Bilirubin 1.4 mg/dL (0.2-1.3); Total Protein 5.9 g/dL (6.3-8.2)
[2023-07-09] MEDS ORDERED: HEPARIN SODIUM,PORCINE (1 ML) 2,500 UNIT in SODIUM CHLORIDE 0.9% 250 ML IRRIGATION PRN (07:00)
[2023-07-09] MEDS ORDERED: HEPARIN SODIUM,PORCINE 10,000 UNIT in SODIUM CHLORIDE 0.9% 1,000 ML IRRIGATION PRN (07:00)
[2023-07-09 08:26] LABS: Basophils # (A) 0.03 X 10*3/uL (0.00-0.10); Basophils % (A) 0.4 %; Eosinophils % (A) 1.4 %; HCT 38.8 % (37.2-46.3); HGB 12.5 g/dL (12.0-15.0); Lymphocytes # (A) 1.02 X 10*3/uL (0.90-5.00); Lymphocytes % (A) 14.3 %; MCH 28.2 pg (27.0-32.0); MCHC 32.2 g/dL (32.0-37.0); MCV 87.6 FL (80.0-97.0); Mean Platelet Volume 11.9 FL (9.5-12.2); Monocytes % (A) 9.8 %; NRBC Per 100 WBC 0 X 10*3/uL (0.00-0.01); Neutrophils # (A) 5.26 X 10*3/uL (1.80-7.70); Neutrophils % (A) 73.8 %; Platelet Count 138 X 10*3/uL (140-440); RBC 4.43 X 10*6/uL (4.10-5.20); RDW 13.3 % (11.5-14.5); WBC 7.13 X 10*3/uL (4.50-10.00)
[2023-07-09 08:35] VITALS: BP 161/65; RESP 16; TEMP 98.3
[2023-07-09] MEDS: ASPIRIN 81 MG PO SCH (09:05)
[2023-07-09] MEDS: SPIRONOLACTONE 25 MG TAB PO SCH (09:06)
[2023-07-09] MEDS: lisinopriL 5 MG TAB PO SCH (09:06)
--- NOTE | 2023-07-09 10:15 | P.PN ---
Subjective Progress Note Date: 07/09/23 Consult reason: chest pain History of present illness: History of present illness: This is a 73-year-old female with past medical history of gastroesophageal reflux disease, morbid obesity status post lap band. Patient complains of sudden onset of shortness of breath as well as heaviness in her chest when she is walking to the bathroom. Symptoms started last Wednesday but patient thought it was related to lap band as she states the lap band had moved and was causing some symptoms for her on and off. She did have this chest pain on and off through the past week. She did use updraft treatment with some improvement. Yesterday she states she could barely breathe and she did have chest pain and it was worse with activity. She denies having any palpitations. She had a little lightheadedness. She states for the last couple of days she has been feeling tired and slept a lot. No cough or sputum production and no fever or chills. No nausea or vomiting. No blood in her stools or urine. No history of stroke or seizure. She states she has had a little lower extremity edema but none present now. She had cold symptoms back in March but none now. Patient apparently had a cardiac catheterization in 1977 which was normal. She has seen Dr. Cummins greater than 10 years ago. She has not been taking any cardiac medications. Patient was started on a heparin drip. Patient has been started on a heparin drip and Lasix IV 40 mg every 8 hours. Discussed option of cardiac catheterization and patient is agreeable to move forward with this. EKG no acute ST changes. Chest x-ray: Cardiomegaly with mild pulmonary vascular congestion. Echocardiogram performed on 07/07/2023 reveals moderate to severe impairment in the left ventricular systolic function with segmental wall motion abnormality, EF 35 to 40%, moderate mitral and mild tricuspid regurgitation. WBC 6.5, hemoglobin 13.3. Troponin 0.02-0.173, 0.197. Creatinine 0.75. proBNP 1970. Urinalysis negative for infection. Home cardiac medications: None 07/08 Yesterday, patient underwent cardiac catheterization with Dr. Jasso which revealed severe stenosis in the proximal LAD, mild disease in the mid RCA, right dominance. Patient underwent successful stenting of the proximal LAD. Patient denies having any chest pain or chest pressure this morning. She states she has episodes of little shortness of breath but 100% better since she came into the hospital. Both wrists have no sign of hematoma. Blood pressure 161/65, heart rate 48, pulse ox 97% on room air. Repeat blood work reveals hemoglobin 12.5, BUN 22 creatinine 0.78. Physical examination: Gen: This is a morbidly obese 73-year-old female in no acute distress VS: reviewed NECK: Supple. No JVD. LUNGS: Clear to auscultation. No wheezes or rhonchi. No intercostal retractions. HEART: Regular rate and rhythm. Soft systolic murmur. ABDOMEN: Soft No tenderness. EXTREMITIES: No pedal edema. No calf tenderness. NEUROLOGICAL: Patient is awake, alert and oriented x3. Assessment: Non-ST elevated myocardial infarction status post stent of the proximal LAD Cardiomyopathy Gastroesophageal reflux disease Morbid obesity status post lap band Plan: Continue patient on aspirin, atorvastatin, lisinopril, metoprolol, Brilinta, Aldactone Prescriptions for her new cardiac medications have been sent to her pharmacy Patient is cleared for discharge from cardiology and may follow-up with Sarah Pinon NP, in the office in 1 week Nurse practitioner note has been reviewed, I agree with documented findings and plan of care. Patient was seen and examined. Objective - Vital Signs Vital signs: Vital Signs Temp 98.5 F 07/09/23 02:00 Pulse 60 07/09/23 02:00 Resp 20 07/08/23 16:52 BP 131/65 07/09/23 02:00 Pulse Ox 98 07/09/23 02:00 FiO2 Intake & Output 07/08/23 07/09/23 07/09/23 18:59 06:59 18:59 Intake Total 261.169 Output Total 700 Balance -438.831 Weight 106.1 kg 105.5 kg Intake: IV 75 Intake, IV Titration 68.169 Amount Heparin Sod,Pork in 0.45% 68.169 NaCl 25,000 unit In 0.45 % NaCl 1 250ml.bag @ 9. 2631 UNITS/KG/HR 10 mls/ hr IV .Q24H [facility] Rx#: [id number] Oral 118 Output: Urine 700 Other: Voiding Method Toilet Toilet # Voids 1 4 - Labs CBC & Chem 7: 07/09/23 05:49 07/09/23 05:49 Labs: Abnormal Lab Results - Last 24 Hours (Table) 07/08/23 07/09/23 Range/Units 06:25 05:49 MCHC 31.3 L (32.0-37.0) g/dL Plt Count 138 L (140-440) X 10*3/uL BUN 22 H (7-17) mg/dL Glucose 121 H (74-99) mg/dL Calcium 8.3 L (8.4-10.2) mg/dL Total Bilirubin 1.4 H (0.2-1.3) mg/dL Total Protein 5.9 L (6.3-8.2) g/dL Albumin 3.1 L (3.5-5.0) g/dL
[2023-07-09 10:31] VITALS: PULSE 57
--- NOTE | 2023-07-09 12:12 | P.DS ---
Providers Date of admission: 07/09/23 09:51 Expected date of discharge: 07/09/23 Attending physician: Andrew Gunn Consults: 07/07/23 19:19 Consult Physician Routine Consulting Provider: Tristin Jasso Consult Reason/Comments: chf Do you want consulting provider notified?: Yes 07/08/23 13:07 Consult Physician Routine Consulting Provider: Vivi Zhong Consult Reason/Comments: Post Interventional Patient Do you want consulting provider notified?: Already Contacted Primary care physician: Lisa Zhang Hospital Course: diagnosis on discharge: Acute non-ST elevation myocardial infarction acute exacerbation of congestive heart failure Hypertensive emergency on presentation Mild elevation in troponin level patient started on IV heparin, cardiology consultation requested, possible non-ST elevation myocardial infarction Underlying history of morbid obesity was previous history of lap band surgery Underlying history of gastroesophageal reflux disease Previous history of smoking Underlying history of depression with anxiety disorder Hospital course: Nina Miller, is a 73-year-old female who presented to [facility] emergency room with a chief complaint of sudden onset of severe shortness of breath and chest heaviness He was evaluated in the emergency room vital examination on presentation revealed a temperature of 98.3 pulse 87 respiration 30 blood pressure 195/95 pulse ox 98% on room air Laboratory data revealed a white blood count of 7.3 hemoglobin 14.1 platelet count 132 d-dimer 1.08 troponin 0.022 BNP 1970 Testing in the emergency room revealed EKG revealed sinus rhythm with nonspecific T-wave abnormalities, chest x-ray revealed cardiomegaly with mild pulmonary vascular congestion Patient was admitted to medical floor for further evaluation and treatment on 07/09/2023 patient was seen and examined on the medical floor she is alert and oriented 3 in no apparent distress she underwent cardiac catheterization yesterday with angioplasty and stent placement to the LAD, she is feeling better today, there is no new episodes of chest pain or shortness of breath, she was evaluated by cardiology and was cleared for discharge, she was advised to follow-up with Dr. Zhang, her primary care physician within one week, patient will also follow with cardiology in 1-2 weeks Patient Condition at Discharge: Serious Plan - Discharge Summary New Discharge Prescriptions: New Spironolactone [Aldactone] 25 mg PO DAILY #90 tab Nitroglycerin Sl Tabs [Nitrostat] 0.4 mg SUBLINGUAL Q5M PRN #25 tab PRN Reason: Chest Pain Aspirin 81 mg PO DAILY tab Ticagrelor [Brilinta] 90 mg PO BID #180 tab Atorvastatin [Lipitor] 80 mg PO HS #90 tab Metoprolol Tartrate [Lopressor] 25 mg PO BID #180 tab lisinopriL [Zestril] 5 mg PO BID #180 tab Continue Sertraline HCl [Zoloft] 100 mg PO DAILY Famotidine 40 mg PO DAILY PRN PRN Reason: Heartburn Discharge Medication List Sertraline HCl [Zoloft] 100 mg PO DAILY 11/17/13 [History] Famotidine 40 mg PO DAILY PRN 07/07/23 [History] Aspirin 81 mg PO DAILY tab 07/09/23 [Rx] Atorvastatin [Lipitor] 80 mg PO HS #90 tab 07/09/23 [Rx] Metoprolol Tartrate [Lopressor] 25 mg PO BID #180 tab 07/09/23 [Rx] Nitroglycerin Sl Tabs [Nitrostat] 0.4 mg SUBLINGUAL Q5M PRN #25 tab 07/09/23 [Rx] Spironolactone [Aldactone] 25 mg PO DAILY #90 tab 07/09/23 [Rx] Ticagrelor [Brilinta] 90 mg PO BID #180 tab 07/09/23 [Rx] lisinopriL [Zestril] 5 mg PO BID #180 tab 07/09/23 [Rx] Follow up Appointment(s)/Referral(s): Lisa Zhang MD [Primary Care Provider] - 1-2 days Sarah Pinon NPC [Nurse Practitioner] - 1 Week
== END 2023-07-09 12:50 | disposition home or self-care (01) | DRG 321 ==
LOC: EC 17:19 → 6NMEDSUR 19:26 → OBSVTOIN 07-09 09:51
PROVIDERS: ADMIT Internal Medicine; ATTEND Internal Medicine
PROC: B2111ZZ Fluoroscopy of Multiple Coronary Arteries using Low Osmolar Contrast (ICD-10-PCS; 2023-07-08)
PROC: B240ZZ3 Ultrasonography of Single Coronary Artery, Intravascular (ICD-10-PCS; 2023-07-08)
PROC: 027034Z Dilation of Coronary Artery, One Artery with Drug-eluting Intraluminal Device, Percutaneous Approach (ICD-10-PCS; principal; 2023-07-08 10:30)
PROC: 02703ZZ Dilation of Coronary Artery, One Artery, Percutaneous Approach (ICD-10-PCS; 2023-07-08 10:30)
PROC: 4A023N7 Measurement of Cardiac Sampling and Pressure, Left Heart, Percutaneous Approach (ICD-10-PCS; 2023-07-08 10:30)
DX: I21.4 Non-ST elevation (NSTEMI) myocardial infarction (principal); I50.33 Acute on chronic diastolic (congestive) heart failure; I16.1 Hypertensive emergency; I42.9 Cardiomyopathy, unspecified; Z68.41 Body mass index [BMI] 40.0-44.9, adult; E66.01 Morbid (severe) obesity due to excess calories; F32.A Depression, unspecified; F41.9 Anxiety disorder, unspecified; I08.1 Rheumatic disorders of both mitral and tricuspid valves; I25.10 Atherosclerotic heart disease of native coronary artery without angina pectoris; R09.02 Hypoxemia; Z98.84 Bariatric surgery status; K21.9 Gastro-esophageal reflux disease without esophagitis; Z79.82 Long term (current) use of aspirin; Z79.02 Long term (current) use of antithrombotics/antiplatelets; Z79.899 Other long term (current) drug therapy; Z87.891 Personal history of nicotine dependence; Z86.14 Personal history of Methicillin resistant Staphylococcus aureus infection; Z87.01 Personal history of pneumonia (recurrent)
CPT/HCPCS: 36415; 71045; 80053; 81003; 83735; 83880; 84484; 85025; 85379; 85610; 85730; 92978; 93005; 93306; 93458; 94640; 96361; 96374; 99291

== ENCOUNTER 2023-12-14 08:59 | Day surgery (SDC) | payer MEDICARE ==
[~2023-12-14 08:59] MED LIST: ALPRAZolam 0.25 MG TAB PO PRN; ALPRAZolam 0.5 MG TAB PO PRN; ATORVASTATIN 80 MG TAB PO ONE; HEPARIN SODIUM,PORCINE (1 ML) 2,500 UNIT in SODIUM CHLORIDE 0.9% 250 ML IRRIGATION PRN; HEPARIN SODIUM,PORCINE 10,000 UNIT in SODIUM CHLORIDE 0.9% 1,000 ML IRRIGATION PRN; NITROGLYCERIN SL TABS 0.4 MG TAB SUBLINGUAL PRN
[2023-12-14] MEDS: ASPIRIN 325 MG TAB PO ONE (09:20)
[2023-12-14] MEDS: SODIUM CHLORIDE 0.9% 1,000 ML in EMPTY BAG 1 BAG IV SCH (09:20)
[2023-12-14] MEDS: IV FLUID CONTINUATION 1,000 ML IV ONE (09:21)
[2023-12-14 09:36] VITALS: RESP 16; TEMP 99.1
[2023-12-14 09:48] LABS: Basophils % (A) 0 %; Eosinophils # (A) 0.1 k/uL (0-0.7); Eosinophils % (A) 1 %; HCT 37.8 % (34.0-46.0); HGB 12.1 gm/dL (11.4-16.0); Hypochromasia Slight; Lymphocytes # (A) 0.6 k/uL (1.0-4.8); Lymphocytes % (A) 18 %; MCHC 32.1 g/dL (31.0-37.0); MCV 93.4 fL (80.0-100.0); Mean Platelet Volume 9.1; Monocytes # (A) 0.2 k/uL (0-1.0); Monocytes % (A) 6 %; Neutrophils # (A) 2.4 k/uL (1.3-7.7); Neutrophils % (A) 72 %; Platelet Count 121 k/uL (150-450); RBC 4.05 m/uL (3.80-5.40); RDW 13.6 % (11.5-15.5); WBC 3.3 k/uL (3.8-10.6)
[2023-12-14 10:10] LABS: African American GFR (CKD) 72 (>60 ml/min/1.73 sqM); Anion Gap 7 mmol/L; Blood Urea Nitrogen 17 mg/dL (7-17); Calcium 8.3 mg/dL (8.4-10.2); Carbon Dioxide 23 mmol/L (22-30); Chloride 105 mmol/L (98-107); Glucose 127 mg/dL (74-99); Non-African American GFR(CKD) 62 (>60 ml/min/1.73 sqM); Potassium 4.3 mmol/L (3.5-5.1); Sodium 135 mmol/L (137-145)
[2023-12-14] MEDS: HEPARIN SODIUM,PORCINE 10,000 UNIT in SODIUM CHLORIDE 0.9% 1,000 ML IRRIGATION ONE (11:20)
[2023-12-14] MEDS: HEPARIN SODIUM,PORCINE (1 ML) 2,500 UNIT in SODIUM CHLORIDE 0.9% 250 ML IRRIGATION ONE (11:20)
[2023-12-14] MEDS: fentaNYL (PF) 50 MCG/ML 2 ML AMP IVP ONE (11:53)
[2023-12-14] MEDS: MIDAZOLAM 2 MG/2 ML VIAL IVP ONE (11:55)
[2023-12-14] MEDS: LIDOCAINE 1% INJ 10MG/ML (20 ML MDV) SQ ONE (11:55)
[2023-12-14] MEDS: IOPAMIDOL-370 100ML BTL INJ ONE (12:13)
[2023-12-14] MEDS ORDERED: RX INFO: IV CONTRAST WAS GIVEN 1 EACH MISC MISCELLANE PRN (12:23)
--- NOTE | 2023-12-14 12:29 | P.CARDCATH ---
Date of Procedure: 12/14/23 Description of Procedure: Cardiac Catheterization: The patient is a 73-year-old female with known history of hypertension hyperlipidemia who underwent stenting of the proximal LAD in June 2023 and at that time she had a jailed first diagonal branch. She has complained of some chest discomfort and underwent an MPI that showed evidence of inducible ischemia in the anterolateral wall. Recommendations were made regarding cardiac catheterization, the risks and the complications were discussed with the patient who is in full understanding and agreement. Procedure Description: Patient was brought to cathead operator in fasting semi-sedated state after receiving Fentanyl and Benadryl achieiving moderate conscious sedated state. Using Xylocaine Anesthesia and modified Seldinger technique, and using a micropuncture technique a 6-Icelandic sheath was introduced in the right femoral artery . Attempt to advance the wire in the left radial artery was unsuccessful. Subsequently, selective coronary angiography was performed using a 6-Icelandic 4 bend Claudia catheter. Multiple views of the coronary artery including hemiaxial views were obtained. The right Claudia catheter was used to cross the aortic valve and LVEDP was calculated. Following that, catheter and sheath were removed. Hemostasis was obtained with deployment of an Angio-Seal. There was no immediate complication. Patient was returned to room in stable condition. Findings: Left main: This is a short size vessel, bifurcating into LAD and left ci rcumflex, left main has no obstructive disease LAD: This is a large size vessel, reaching to the apex with a wraparound apex segment giving rise to a large diagonal branch proximally. The stented segment in the LAD is patent with 10 to 20% in-stent restenosis. The ostium of the diagonal branch that is a jailed branch has an 85 to 90% stenosis with JOYCE-3 flow Left circumflex: This is a small nondominant vessel giving rise to 2 obtuse marginal branch that has no evidence of obstructive disease RCA: This is a large dominant vessel, bifurcating distally to PDA and PLV. The mid right coronary artery has intimal disease of 20 to 30% with no high-grade stenosis Left Ventriculogram: Not performed Hemodynamics: There was no gradient across aortic valve, LVEDP was 8-10 mmHg Conclusion: 1. Patent stent to the LAD with significant disease at the ostium of the jailed first diagonal branch with no progression compared to June 2. Mild disease in the RCA 3. JOYCE-3 flow in the diagonal branch 4. Low LVEDP Recommendations: In view of the findings I would recommend to continue medical therapy. If she has persistent symptoms in spite of maximal medical therapy then attempt to stent the diagonal branch will be considered. The findings and the recommendations were discussed with the patient and the family and they were in full understanding and agreement. Duration of sedation is 20 minutes.
[2023-12-14] MEDS ORDERED: SODIUM CHLORIDE 0.9% 1,000 ML IV SCH (12:30)
[2023-12-14 14:23] VITALS: BP 147/67; PULSE 53
[2023-12-14] MEDS ORDERED: ATORVASTATIN 80 MG TAB PO SCH (21:00)
[2023-12-14] MEDS ORDERED: TICAGRELOR 90 MG TAB PO SCH (21:00)
[2023-12-14] MEDS ORDERED: lisinopriL 10 MG TAB PO SCH (21:00)
[2023-12-15] MEDS ORDERED: SERTRALINE 100 MG TAB PO SCH (09:00)
[2023-12-15] MEDS ORDERED: ASPIRIN 81 MG PO SCH (09:00)
[2023-12-15] MEDS ORDERED: ISOSORBIDE MONONITRATE ER 30 MG TAB.ER.24H PO SCH (09:00)
== END 2023-12-14 16:26 | disposition home or self-care (01) ==
LOC: CATHCVL 08:59
PROVIDERS: ATTEND Internal Medicine Interventional Cardiology
CPT/HCPCS: 80048; 85025; 93458